=== PATIENT | female | born 1955 | race Caucasian/White ===

== ENCOUNTER 2017-04-24 14:41 | Outpatient (CLI) | payer MEDICARE, MEDICAID ==
--- NOTE | 2017-04-24 16:44 | RAD ---
EXAM: THREE VIEWS LUMBAR SPINE: 04/24/17 HISTORY: Lumbar radiculopathy. Low back pain x12 year. COMPARISON: 07/05/04. FINDINGS: There are five lumbar type vertebral bodies. In neutral position, there is 3 mm of retrolisthesis of L1 upon L2. Upon flexion, there is 3.6 mm of retrolisthesis of L1 upon L2. On extension, there is 2 .4 mm of retrolisthesis of L1 upon L2. In the neutral position, there is 2.7 mm of retrolisthesis of L3 upon L4. Upon flexion there is 3.4 mm of retrolisthesis of L3 upon L4. Upon extension, there is 2.4 mm of retrolisthesis of L3 upon L4. Moderate degenerative change of the lumbosacral junction. IMPRESSION: Spondylolisthesis as above. POS: [facility]
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
== END 2017-04-24 14:42 | disposition home or self-care (01) ==
LOC: TBSIIMAG 14:41
PROVIDERS: ATTEND Neurological Surgery
DX: M47.26 Other spondylosis with radiculopathy, lumbar region (principal); M43.16 Spondylolisthesis, lumbar region
CPT/HCPCS: 72100; 72131

== ENCOUNTER 2019-05-22 09:07 | Outpatient (CLI) | payer MEDICARE, MEDICAID ==
--- NOTE | 2019-05-22 10:04 | CT ---
Exam: Noncontrast chest CT; CT lung scan low dose HISTORY:Intermittent smoking for over 40 years COMPARISON: None TECHNIQUE: Low-dose screening lung CT is performed utilizing institutional protocol FINDINGS: Lung screening specific (LUNG-RADS):1. Negative.. Nonspecific patchy groundglass opacities throughout the lung parenchyma. No suspicious masses or nodules. No consolidation. Potential significant incidentals (lung RADS category S): None Pulmonary incidentals:Few scattered calcified granulomas are noted. Other incidentals: Gallbladder is surgically absent. Atherosclerosis of the aorta. IMPRESSION: 1. Lung RADS -1. Negative. 2. Lung Rask category S: Negative. No new or unknown potential significant incidental findings requir ing urgent additional evaluation 3. Other incidentals as above. Recommendation: Continued routine annual low-dose lung screening CT. Follow-up in one year.
== END 2019-05-22 09:08 | disposition home or self-care (01) ==
LOC: CT 09:07
PROVIDERS: ATTEND Family Medicine
DX: F17.200 Nicotine dependence, unspecified, uncomplicated (principal)
CPT/HCPCS: G0297

== ENCOUNTER 2020-04-15 14:32 | Outpatient (CLI) | payer MEDICARE, MEDICAID, OTHER ==
[2020-04-15 17:59] LABS: #Basophils 0.1 thou/uL (0.0-0.2); #Eosinphils 0.2 thou/uL (0.0-0.7); #Lymphocytes 2.5 thou/uL (1.20-3.40); #Monocytes 0.5 thou/uL (0.11-0.59); #Neutrophils 4.5 thou/uL (1.40-6.50); %Basophils 0.7 % (0.0-1.0); %Eosinophils 2.1 % (0.0-10.0); %Lymphocytes 31.8 % (21.0-51.0); %Monocytes 6.7 % (0.0-10.0); %Neutrophils 58.8 % (42.0-75.0); Hemoglobin 11.9 g/dL (12.0-16.0); Mean Corpuscular HGB CONC 32.8 g/dL (32.0-36.0); Mean Corpuscular Hemoglobin 26.4 pg (27.0-31.0); Mean Corpuscular Volume 80.6 fL (78.0-98.0); Mean Platelet Volume 8.5 fL (7.4-10.4); Platelet Count 218 thou/uL (130-400); Red Blood Cell (RBC) Count 4.49 mill/uL (4.20-5.40); White Blood Cell (WBC) Count 7.7 thou/uL (4.8-10.8)
[2020-04-15 19:15] LABS: ALT (SGPT) 92 U/L (8-55); AST (SGOT) 57 U/L (5-34); Albumin 4.6 g/dL (3.4-4.8); Alkaline Phosphatase 145 U/L (40-110); Anion Gap 17 mmol/L (10-20); BUN (Urea Nitrogen) 12 mg/dL (9.8-20.1); Bilirubin, Total 0.5 mg/dL (0.2-1.2); Calc. Creatinine Clearance 0 mL/min (70-130); Calcium 7.5 mg/dL (7.8-10.44); Carbon Dioxide 26 mmol/L (23-31); Chloride 104 mmol/L (98-107); Estimated GFR-MDRD 50; Globulin 2.2 g/dL (2.4-3.5); Glucose 131 mg/dL (80-115); Protein, Total 6.8 g/dL (6.0-8.3); Sodium 143 mmol/L (136-145)
[2020-04-16 12:46] LABS: SARS-CoV-2 MS2 Positive; SARS-CoV-2 N Gene Negative; SARS-CoV-2 S Gene Negative; SARS-CoV-2 by NAA Not Detected (NotDetected); SARS-CoV-2 orf1ab Negative
== END 2020-04-15 14:33 | disposition home or self-care (01) ==
LOC: LABBT 14:32
PROVIDERS: ATTEND Internal Medicine Cardiovascular Disease
DX: Z01.812 Encounter for preprocedural laboratory examination (principal); Z20.828 Contact with and (suspected) exposure to other viral communicable diseases; R94.31 Abnormal electrocardiogram [ECG] [EKG]; R07.89 Other chest pain
CPT/HCPCS: 80053; 85025; U0003; 87635

== ENCOUNTER 2020-05-14 07:34 | Outpatient (CLI) | payer MEDICARE, MEDICAID, OTHER ==
[2020-05-14 14:02] LABS: #Basophils 0.1 thou/uL (0.0-0.2); #Eosinphils 0.2 thou/uL (0.0-0.7); #Lymphocytes 2.5 thou/uL (1.20-3.40); #Monocytes 0.4 thou/uL (0.11-0.59); #Neutrophils 3.2 thou/uL (1.40-6.50); %Basophils 0.9 % (0.0-1.0); %Eosinophils 3.1 % (0.0-10.0); %Lymphocytes 38.8 % (21.0-51.0); %Monocytes 6.4 % (0.0-10.0); %Neutrophils 50.8 % (42.0-75.0); Hemoglobin 12.4 g/dL (12.0-16.0); Mean Corpuscular HGB CONC 34.4 g/dL (32.0-36.0); Mean Corpuscular Hemoglobin 27.7 pg (27.0-31.0); Mean Corpuscular Volume 80.5 fL (78.0-98.0); Mean Platelet Volume 8.2 fL (7.4-10.4); Platelet Count 228 thou/uL (130-400); RBC Distribution Width 12.6 % (11.5-14.5); Red Blood Cell (RBC) Count 4.48 mill/uL (4.20-5.40); White Blood Cell (WBC) Count 6.3 thou/uL (4.8-10.8)
[2020-05-14 14:36] LABS: ALT (SGPT) 55 U/L (8-55); AST (SGOT) 37 U/L (5-34); Albumin 4.3 g/dL (3.4-4.8); Alkaline Phosphatase 131 U/L (40-110); Anion Gap 14 mmol/L (10-20); BUN (Urea Nitrogen) 19 mg/dL (9.8-20.1); Bilirubin, Total 0.4 mg/dL (0.2-1.2); Calc. Creatinine Clearance 0 mL/min (70-130); Calcium 8.1 mg/dL (7.8-10.44); Carbon Dioxide 25 mmol/L (23-31); Chloride 105 mmol/L (98-107); Estimated GFR-MDRD 55; Globulin 2.4 g/dL (2.4-3.5); Glucose 83 mg/dL (80-115); Potassium 4.3 mmol/L (3.5-5.1); Protein, Total 6.7 g/dL (6.0-8.3); Sodium 140 mmol/L (136-145)
[2020-05-15 12:06] LABS: SARS-CoV-2 MS2 Positive; SARS-CoV-2 N Gene Negative; SARS-CoV-2 S Gene Negative; SARS-CoV-2 by NAA Not Detected (NotDetected); SARS-CoV-2 orf1ab Negative
== END 2020-05-14 07:35 | disposition home or self-care (01) ==
LOC: LABBT 07:34
PROVIDERS: ATTEND Internal Medicine Cardiovascular Disease
DX: Z01.812 Encounter for preprocedural laboratory examination (principal); Z20.828 Contact with and (suspected) exposure to other viral communicable diseases; R07.89 Other chest pain
CPT/HCPCS: 80053; 85025; U0003; 87635

== ENCOUNTER 2020-05-19 05:42 | Day surgery (SDC) | payer MEDICARE, MEDICAID ==
[2020-05-18 11:51] VITALS: BMI 27.4
[2020-05-19] MEDS ORDERED: Fentanyl 100 MCG/2 ML VIAL ONE (07:17)
[2020-05-19] MEDS ORDERED: Midazolam HCl 2 mg/2 ml Vial ONE ×2 (07:17→07:31)
[2020-05-19] MEDS ORDERED: Iopamidol 370 76% 100 ML VIAL ONE (08:52)
--- NOTE | 2020-05-20 05:43 | HP ---
ADDENDUM: Ms. Pérez is a pleasant 64-year-old woman with history of diabetes and previous history of smoking, continues to have pressure in her chest, usually at rest, sometimes nocturnal. No exertional component. She had extremely high risk factor profile with diabetes, smoking, hypercholesterolemia and a family history of her father who suddenly at her age. For that reason, cardiac catheterization was advised. The patient did undergo cardiac catheterization today. There was no flow-limiting disease. It appeared to be within normal limits. In view of her risk factors for coronary artery disease, she should continue statin therapy. Recommended she continue to take aspirin for another 3 months. She will see us on one further occasion in about 3 months. In talking to her again, I think her pain may be esophageal as it usually happens at night after she lies down. She is taking Protonix twice a day. We have asked her to try to elevate the head of her bed 2 inches and go to 4 inches if she still has discomfort. Otherwise, no other recommendations at the present time. We did discuss the possibility of coronary spasm, but this seems unlikely based on the very frequent nature of her symptoms, which happens almost every day after she lies down. Job ID: [id number]
== END 2020-05-19 13:15 | disposition home or self-care (01) ==
LOC: CCL 05:42
PROVIDERS: ATTEND Internal Medicine Cardiovascular Disease
PROC: 4A023N7 Measurement of Cardiac Sampling and Pressure, Left Heart, Percutaneous Approach (ICD-10-PCS; principal; 2020-05-19)
PROC: B2111ZZ Fluoroscopy of Multiple Coronary Arteries using Low Osmolar Contrast (ICD-10-PCS; 2020-05-19)
DX: R07.89 Other chest pain (principal); E11.9 Type 2 diabetes mellitus without complications; Z79.84 Long term (current) use of oral hypoglycemic drugs; Z79.899 Other long term (current) drug therapy; Z88.2 Allergy status to sulfonamides
CPT/HCPCS: 76942; 93458; 99152; 99153; J1644; J2250; J3010; Q9967

== ENCOUNTER 2021-06-08 14:06 | Outpatient (CLI) | payer MEDICARE, MEDICAID | END 2021-06-08 14:07 | disposition home or self-care (01) | LOC: BICRAD 14:06 | PROVIDERS: ATTEND Family Medicine | DX: M46.1 Sacroiliitis, not elsewhere classified (principal); G89.4 Chronic pain syndrome; M47.816 Spondylosis without myelopathy or radiculopathy, lumbar region | CPT/HCPCS: 72100 ==

== ENCOUNTER 2021-08-13 19:08 | Inpatient (IN) | payer MEDICARE, MEDICAID ==
[~2021-08-13 19:08] MED LIST: Iopamidol-370 76% 500 ML 1 ML ONE
[2021-08-13 20:25] LABS: #Eosinphils 0.1 thou/uL (0.0-0.7); #Monocytes 0.7 thou/uL (0.11-0.59); #Neutrophils 5.2 thou/uL (1.40-6.50); %Basophils 0.2 % (0.0-1.0); %Eosinophils 1.6 % (0.0-10.0); %Monocytes 8.1 % (0.0-10.0); %Neutrophils 57.1 % (42.0-75.0); Hemoglobin 12.4 g/dL (12.0-16.0); Mean Corpuscular HGB CONC 33.6 g/dL (32.0-36.0); Mean Corpuscular Hemoglobin 27.2 pg (27.0-31.0); Mean Corpuscular Volume 80.8 fL (78.0-98.0); Mean Platelet Volume 8.2 fL (7.4-10.4); Platelet Count 264 thou/uL (130-400); RBC Distribution Width 13.1 % (11.5-14.5); Red Blood Cell (RBC) Count 4.57 mill/uL (4.20-5.40)
[2021-08-13 20:28] LABS: Bacteria/HPF 1+ HPF (None Seen); Bilirubin Negative (Negative); Blood, Urine Negative (Negative); Clarity Clear (Clear); Glucose, Urine (Dipstick) Normal (Negative); Ketone, Urine Negative (Negative); Leukocyte 75 Leu/uL (Negative); Nitrite Negative (Negative); Protein, Urine (Dipstick) 20 mg/dL (Neg-Trace); RBC/HPF 0-3 HPF (0-3); Specific Gravity, Urine 1.027 (1.002-1.036); Urobilinogen Normal mg/dL (Less than 2); pH, Urine 5.5 (5.0-9.0)
[2021-08-13 21:06] LABS: ALT (SGPT) 38 U/L (8-55); AST (SGOT) 32 U/L (5-34); Albumin 4.3 g/dL (3.4-4.8); Alkaline Phosphatase 167 U/L (40-110); Anion Gap 19 mmol/L (10-20); BUN (Urea Nitrogen) 18 mg/dL (9.8-20.1); Bilirubin, Total 0.3 mg/dL (0.2-1.2); Calc. Creatinine Clearance 0 mL/min (70-130); Calcium 8.3 mg/dL (7.8-10.44); Carbon Dioxide 23 mmol/L (23-31); Chloride 104 mmol/L (98-107); Globulin 3.6 g/dL (2.4-3.5); Glucose 108 mg/dL (80-115); Potassium 4.5 mmol/L (3.5-5.1); Protein, Total 7.9 g/dL (5.8-8.1); Sodium 141 mmol/L (136-145)
[2021-08-13] MEDS ORDERED: Furosemide 40 MG/4 ML VIAL ONE (21:34)
[2021-08-13] MEDS ORDERED: Ondansetron PF 4 MG/2 ML Vial IVP PRN (22:45)
[2021-08-13] MEDS ORDERED: Ondansetron ODT 4 MG TAB SL PRN (22:45)
[2021-08-13] MEDS ORDERED: Aspirin 325 mg Enteric Coated Tablet PO SCH (22:45)
[2021-08-13 23:44] LABS: Troponin I 0.015 ng/mL (< 0.028)
[2021-08-14] MEDS ORDERED: HumaLOG 300 UNITS/3 ML VIAL SC PRN ×2 (00:11)
[2021-08-14] MEDS ORDERED: Dextrose 50% Abboject 50 ML SYRINGE SLOW IVP PRN (00:11)
[2021-08-14] MEDS ORDERED: Acetaminophen 325 MG TAB PO PRN (00:11)
[2021-08-14] MEDS ORDERED: Acetaminophen 650 MG Suppository PR PRN (00:11)
[2021-08-14] MEDS ORDERED: Dextrose 5% in Water 1,000 ML IV PRN (00:11)
[2021-08-14] MEDS ORDERED: Aspirin 325 MG TAB ONE (00:22)
[2021-08-14] MEDS ORDERED: Nitroglycerin 2% Ointment 1 INCH/1 GM Packet ONE ×3 (00:22→05:52)
[2021-08-14] MEDS: Nitroglycerin 2% Ointment 1 INCH/1 GM Packet TOP SCH ×2 (00:53→05:54)
[2021-08-14 02:43] LABS: #Eosinphils 0.2 thou/uL (0.0-0.7); #Monocytes 0.8 thou/uL (0.11-0.59); #Neutrophils 4.9 thou/uL (1.40-6.50); %Basophils 0.3 % (0.0-1.0); %Eosinophils 2.1 % (0.0-10.0); %Lymphocytes 33.6 % (21.0-51.0); %Monocytes 9.1 % (0.0-10.0); Hemoglobin 12.4 g/dL (12.0-16.0); Mean Corpuscular HGB CONC 34.1 g/dL (32.0-36.0); Mean Corpuscular Hemoglobin 27.3 pg (27.0-31.0); Mean Corpuscular Volume 80.1 fL (78.0-98.0); Mean Platelet Volume 8.3 fL (7.4-10.4); Platelet Count 244 thou/uL (130-400); RBC Distribution Width 13.4 % (11.5-14.5); Red Blood Cell (RBC) Count 4.55 mill/uL (4.20-5.40); White Blood Cell (WBC) Count 8.9 thou/uL (4.8-10.8)
[2021-08-14 03:06] LABS: Troponin I 0.019 ng/mL (< 0.028)
[2021-08-14 03:08] LABS: Anion Gap 21 mmol/L (10-20); BUN (Urea Nitrogen) 17 mg/dL (9.8-20.1); Calc. Creatinine Clearance 0 mL/min (70-130); Calcium 8.3 mg/dL (7.8-10.44); Carbon Dioxide 19 mmol/L (23-31); Chloride 103 mmol/L (98-107); Glucose 105 mg/dL (80-115); Sodium 139 mmol/L (136-145)
[2021-08-14 03:28] LABS: SARS-CoV-2 NAA Rapid Test Not Detected (NotDetected)
[2021-08-14] MEDS ORDERED: HYDROcodone/Acetaminophen 5/325 mg Tablet PO PRN (08:07)
[2021-08-14] MEDS ORDERED: hydrOXYzine 25 MG TAB PO PRN (08:49)
[2021-08-14] MEDS ORDERED: Lisinopril 10 MG TAB PO SCH (09:00)
[2021-08-14] MEDS ORDERED: Furosemide 40 MG/4 ML VIAL SLOW IVP SCH (09:00)
[2021-08-14] MEDS ORDERED: metFORMIN 500 MG TAB PO SCH (09:00)
[2021-08-14 09:31] VITALS: BMI 30.9
[2021-08-14] MEDS ORDERED: Furosemide 40 MG/4 ML VIAL ONE (09:44)
[2021-08-14] MEDS ORDERED: Dicyclomine 20 MG TAB ONE (09:44)
[2021-08-14] MEDS ORDERED: Enoxaparin Sodium 40 MG/0.4 ML SYRINGE ONE (09:44)
[2021-08-14] MEDS ORDERED: Promethazine 25 MG TAB ONE (09:44)
[2021-08-14] MEDS ORDERED: Lisinopril 10 MG TAB ONE (09:44)
[2021-08-14] MEDS: Promethazine 25 MG TAB PO PRN ×2 (09:47→17:58)
[2021-08-14] MEDS: Enoxaparin Sodium 40 MG/0.4 ML SYRINGE SC SCH (09:50)
[2021-08-14] MEDS: Dicyclomine 20 MG TAB PO SCH ×2 (09:51→20:22)
[2021-08-14] MEDS: Gabapentin 100 MG CAP PO SCH ×3 (10:11→20:22)
[2021-08-14] MEDS: Escitalopram Oxalate 20 mg Tablet PO SCH (10:11)
[2021-08-14] MEDS: Venlafaxine HCl XR 75 MG CAP PO SCH (10:11)
[2021-08-14] MEDS ORDERED: Furosemide 40 MG TAB ONE (10:32)
[2021-08-14] MEDS ORDERED: Furosemide 40 MG TAB PO SCH (11:30)
[2021-08-14] MEDS ORDERED: Levothyroxine Sodium 75 MCG TAB PO SCH (11:45)
[2021-08-14] MEDS: Mometasone 100 MCG/PUFF (1 INHALER) INH SCH (19:16)
[2021-08-14] MEDS: Amitriptyline HCl 25 MG TAB PO SCH (20:21)
[2021-08-14] MEDS: Atorvastatin Calcium 40 MG TAB PO SCH (20:22)
[2021-08-14] MEDS: rOPINIRole HCl 1 MG TAB PO SCH (20:22)
[2021-08-15] MEDS: Levothyroxine Sodium 75 MCG TAB PO SCH (06:33)
[2021-08-15] MEDS: Mometasone 100 MCG/PUFF (1 INHALER) INH SCH ×2 (06:53→20:13)
[2021-08-15] MEDS: Promethazine 25 MG TAB PO PRN ×2 (06:53→18:47)
[2021-08-15] MEDS ORDERED: Promethazine 25 MG TAB PO PRN (07:58)
[2021-08-15] MEDS: Furosemide 20 MG TAB PO SCH (09:02)
[2021-08-15] MEDS: Dicyclomine 20 MG TAB PO SCH ×2 (09:02→21:23)
[2021-08-15] MEDS: Gabapentin 100 MG CAP PO SCH ×3 (09:02→21:23)
[2021-08-15] MEDS: metFORMIN 500 MG TAB PO SCH (09:03)
[2021-08-15] MEDS: Carvedilol 3.125 MG TAB PO SCH ×2 (09:03→17:31)
[2021-08-15] MEDS: Venlafaxine HCl XR 75 MG CAP PO SCH (09:03)
[2021-08-15] MEDS: Escitalopram Oxalate 20 mg Tablet PO SCH (09:03)
[2021-08-15] MEDS: Spironolactone 25 MG TAB PO SCH (09:03)
[2021-08-15] MEDS: Enoxaparin Sodium 40 MG/0.4 ML SYRINGE SC SCH (09:03)
[2021-08-15 10:20] LABS: Anion Gap 18 mmol/L (10-20); BUN (Urea Nitrogen) 18 mg/dL (9.8-20.1); Calc. Creatinine Clearance 57 mL/min (70-130); Calcium 8.4 mg/dL (7.8-10.44); Carbon Dioxide 25 mmol/L (23-31); Cardiac Risk 4.2 (Less than 4.5); Chloride 101 mmol/L (98-107); Cholesterol 203 mg/dl (< 200 Desired); Glucose 124 mg/dL (80-115); HDL Cholesterol 48 mg/dL (>60 Neg Risk); LDL Cholesterol, Calculated 103 mg/dL; Potassium 3.6 mmol/L (3.5-5.1); Sodium 140 mmol/L (136-145); Triglycerides 258 mg/dL (Less than 150)
[2021-08-15 10:26] LABS: Magnesium 0.6 mg/dL (1.6-2.6)
[2021-08-15 10:28] LABS: Phosphorus 3.8 mg/dL (2.3-4.7)
[2021-08-15] MEDS ORDERED: Magnesium 2 GM/50 ML 2 GM in Premix Bag 1 BAG IVPB SCH (10:45)
[2021-08-15] MEDS ORDERED: Magnesium Sulfate 4 GM in Sodium Chloride 0.9% 250 ML 250 ML IVPB SCH (11:00)
[2021-08-15] MEDS: rOPINIRole HCl 1 MG TAB PO SCH (21:23)
[2021-08-15] MEDS: Atorvastatin Calcium 40 MG TAB PO SCH (21:24)
[2021-08-15] MEDS: Amitriptyline HCl 25 MG TAB PO SCH (21:24)
[2021-08-16] MEDS: Levothyroxine Sodium 75 MCG TAB PO SCH (05:27)
[2021-08-16 05:33] LABS: Anion Gap 17 mmol/L (10-20); BUN (Urea Nitrogen) 16 mg/dL (9.8-20.1); Calc. Creatinine Clearance 64 mL/min (70-130); Calcium 8.1 mg/dL (7.8-10.44); Carbon Dioxide 21 mmol/L (23-31); Chloride 99 mmol/L (98-107); Glucose 122 mg/dL (80-115); Magnesium 1.7 mg/dL (1.6-2.6); Potassium 3.3 mmol/L (3.5-5.1); Sodium 134 mmol/L (136-145)
[2021-08-16] MEDS ORDERED: Potassium Chloride 20 MEQ TAB PO SCH (07:00)
[2021-08-16] MEDS: Mometasone 100 MCG/PUFF (1 INHALER) INH SCH (07:12)
[2021-08-16] MEDS: metFORMIN 500 MG TAB PO SCH (08:45)
[2021-08-16] MEDS: Dicyclomine 20 MG TAB PO SCH (08:45)
[2021-08-16] MEDS: Furosemide 20 MG TAB PO SCH (08:45)
[2021-08-16] MEDS: Enoxaparin Sodium 40 MG/0.4 ML SYRINGE SC SCH (08:45)
[2021-08-16] MEDS: Carvedilol 3.125 MG TAB PO SCH (08:45)
[2021-08-16] MEDS: Spironolactone 25 MG TAB PO SCH (08:46)
[2021-08-16] MEDS: Gabapentin 100 MG CAP PO SCH (08:46)
[2021-08-16] MEDS: Venlafaxine HCl XR 75 MG CAP PO SCH (08:46)
[2021-08-16] MEDS: Escitalopram Oxalate 20 mg Tablet PO SCH (08:46)
[2021-08-16] MEDS ORDERED: Magnesium Oxide 400 MG TAB PO SCH (09:00)
[2021-08-16 12:00] VITALS: BP 109/56; TEMP 98.7
[2021-08-16] MEDS ORDERED: Carvedilol 6.25 MG TAB PO SCH (17:00)
== END 2021-08-16 13:05 | disposition home or self-care (01) | DRG 291 ==
LOC: ERS 19:08 → ERHOLD 21:44 → 2NO 22:31 → OBSVTOIN 08-14 05:15 → 2NO 08-14 14:33
PROVIDERS: ADMIT Family Medicine; ATTEND Family Medicine
DX: I13.0 Hypertensive heart and chronic kidney disease with heart failure and stage 1 through stage 4 chronic kidney disease, or unspecified chronic kidney disease (principal); I50.21 Acute systolic (congestive) heart failure; Z20.822 Contact with and (suspected) exposure to COVID-19; K91.2 Postsurgical malabsorption, not elsewhere classified; F41.9 Anxiety disorder, unspecified; F32.A Depression, unspecified; K58.9 Irritable bowel syndrome, unspecified; N18.9 Chronic kidney disease, unspecified; J44.9 Chronic obstructive pulmonary disease, unspecified; R73.03 Prediabetes; E66.9 Obesity, unspecified; K29.70 Gastritis, unspecified, without bleeding; E78.5 Hyperlipidemia, unspecified; K21.9 Gastro-esophageal reflux disease without esophagitis; G25.81 Restless legs syndrome; I42.9 Cardiomyopathy, unspecified; E83.42 Hypomagnesemia; E87.6 Hypokalemia; Z68.29 Body mass index [BMI] 29.0-29.9, adult; Z88.2 Allergy status to sulfonamides; Z79.84 Long term (current) use of oral hypoglycemic drugs; Z79.890 Hormone replacement therapy; Z79.899 Other long term (current) drug therapy; Z90.710 Acquired absence of both cervix and uterus; Z90.49 Acquired absence of other specified parts of digestive tract
CPT/HCPCS: 36415; 36416; 71045; 71275; 80048; 80053; 80061; 81003; 81015; 83735; 83880; 84100; 84443; 84484; 85025; 93005; 93306; 93798; 94760; G0378; J1650; J1940; J3475; J7050; Q0169; Q9967; U0002

== ENCOUNTER 2022-05-04 12:23 | Outpatient (CLI) | payer OTHER, MEDICAID | END 2022-05-04 12:24 | disposition home or self-care (01) | LOC: BICMAMMO 12:23 | PROVIDERS: ATTEND Student in an Organized Health Care Education/Training Program | DX: Z12.31 Encounter for screening mammogram for malignant neoplasm of breast (principal); Z80.3 Family history of malignant neoplasm of breast; Z91.89 Other specified personal risk factors, not elsewhere classified | CPT/HCPCS: 77063; 77067 ==

== ENCOUNTER 2022-11-13 14:17 | Outpatient (CLI) | payer OTHER, MEDICAID | END 2022-11-13 14:18 | disposition home or self-care (01) | LOC: BICCT 14:17 | PROVIDERS: ATTEND Student in an Organized Health Care Education/Training Program | DX: Z00.00 Encounter for general adult medical examination without abnormal findings (principal); Z12.2 Encounter for screening for malignant neoplasm of respiratory organs; F17.210 Nicotine dependence, cigarettes, uncomplicated; Z91.89 Other specified personal risk factors, not elsewhere classified | CPT/HCPCS: 71271 ==

== ENCOUNTER 2024-08-06 13:23 | Outpatient (CLI) | payer OTHER, MEDICAID | END 2024-08-06 13:24 | disposition home or self-care (01) | LOC: BICCT 13:23 | PROVIDERS: ATTEND Family Medicine | DX: Z12.2 Encounter for screening for malignant neoplasm of respiratory organs (principal); R91.1 Solitary pulmonary nodule; Z87.891 Personal history of nicotine dependence | CPT/HCPCS: 71271 ==